=== PATIENT | female | born 1945 | race Caucasian/White ===

== ENCOUNTER 2022-12-09 21:40 | Emergency (ER) | payer BC ==
[~2022-12-09] VITALS: Ht 152.4 cm; Wt 68.0 kg
[2022-12-09 21:50] VITALS: BP_SYST 133
--- NOTE | 2022-12-09 21:58 | NUR ---
PT BIB FAMILY VIA W/C FR HOME C/O SHAKING, KEEP FALLING FOR 2 MOS NOW AND WEAKNESS. ALLERGIC TO CODEINE. PMH: HLD, DM, NEUROPATHY, GERD. HAD EPIDURAL SHOT IN NOVEMBER. 2 DAYS AGO, PT FELL HIT HEAD WENT TO [facility], HAD CT DONE (-). ALLERGIC TO CODEINE.
[2022-12-09 23:12] LABS: BASOPHILS # (AUTO) 0.1 K/uL (0.0-0.2); BASOPHILS % (AUTO) 0.6 % (0.0-2.0); EOSINOPHILS # (AUTO) 0.1 K/uL (0.0-0.4); EOSINOPHILS % (AUTO) 1.3 % (0.0-4.0); HEMATOCRIT 39.7 % (36-48); HEMOGLOBIN 13.3 g/dL (12.0-16.0); LYMPHOCYTES # (AUTO) 1.4 K/uL (1.0-5.5); LYMPHOCYTES % (AUTO) 14.8 % (20.5-51.5); MEAN CORPUSCULAR HEMOGLOBIN 31 pg (27-31); MEAN CORPUSCULAR HGB CONC 34 % (32-36); MEAN CORPUSCULAR VOLUME 94 fL (79.0-98.0); MONOCYTES # (AUTO) 0.7 K/uL (0.0-1.0); MONOCYTES % (AUTO) 7.7 % (1.7-9.3); NEUTROPHILS # (AUTO) 7.3 K/uL (1.8-7.7); NEUTROPHILS % (AUTO) 75.6 % (40.0-70.0); PLATELET COUNT (AUTO) 206 K/uL (130-430); RED BLOOD CELL COUNT(AUTO) 4.23 MIL/uL (4.2-6.2); RED CELL DISTRIBUTION WIDTH 15.1 % (9.0-15.0); WHITE BLOOD COUNT (AUTO) 9.7 K/uL (4.8-10.8)
--- NOTE | 2022-12-09 23:16 | NUR ---
COVID AND INFLUENZA SWABS COLLECTED AND SENT TO LAB.
[2022-12-09 23:21] LABS: ANION GAP 7 (5-15); CALCIUM 9.4 mg/dL (8.4-11.0); CHLORIDE 105 mmol/L (98-107); CREATININE 0.94 mg/dL (0.55-1.30); GLUCOSE 146 mg/dL (70-99); UREA NITROGEN, BLOOD 13 mg/dL (8-21)
[2022-12-09 23:28] LABS: ALANINE AMINOTRANSFERASE 29 U/L (12-78); ALBUMIN 3.7 g/dL (3.4-4.8); ASPARTATE AMINOTRANSFERASE 27 U/L (10-37); TOTAL BILIRUBIN 1.1 mg/dL (0.0-1.0)
--- NOTE | 2022-12-09 23:35 | NUR ---
Placed in room 02 . Placed on color television console monitor, blood pressure machine and pulse oximeter. To gown for exam. Side rails up. Report given to SANCHEZ FALL
--- NOTE | 2022-12-10 00:26 | NUR ---
FIRST CONTACT WITH PT. ASSESSMENT COMPLETED. AWAITING EVAL AND ORDERS.
--- NOTE | 2022-12-10 01:04 | NUR ---
PT HAS BEEN UNABLE TO PROVIDE URINE SAMPLE REQUESTED. ENCOURAGED TO DRINK PROVIDED WATER. BED JOSEPH PLACED
--- NOTE | 2022-12-10 01:51 | NUR ---
# 16 FR In and Out catheter with use of sterile technique. Immediate return of 50ml clear yellow urine noted. Urine sample collected and sent to lab. Pt tolerated procedure well Patient unable to toilet self.
[2022-12-10 02:22] LABS: BILIRUBIN,URINE NEGATIVE (NEGATIVE); BLOOD, URINE 1+ (NEGATIVE); COLOR,URINE YELLOW (YELLOW); GLUCOSE,URINE NEGATIVE (NEGATIVE); KETONES,URINE TRACE (NEGATIVE); LEUKOCYTE ESTERASE ,URINE NEGATIVE (NEGATIVE); NITRITE, URINE NEGATIVE (NEGATIVE); PROTEIN URINE NEGATIVE (NEGATIVE); UROBILINOGEN,URINE 0.2 (0.2-1.0)
[2022-12-10 02:44] LABS: CLARITY/URINE HAZY (CLEAR)
[2022-12-10 02:54] LABS: BACTERIA,URINE None Seen /HPF (None Seen); WBC,URINE 0-3 /HPF (0-3)
[2022-12-10] MEDS ORDERED: ASPI-1155 PO (03:28)
[2022-12-10] MEDS ORDERED: FAMO20TA8 PO (03:28)
[2022-12-10] MEDS ORDERED: LEVO112T5 PO (03:28)
[2022-12-10] MEDS ORDERED: BACL10TA PO (03:28)
[2022-12-10] MEDS ORDERED: TRAM50TA2 PO (03:28)
[2022-12-10] MEDS ORDERED: SIMV-341 PO (03:28)
[2022-12-10] MEDS ORDERED: GABA-529 PO (03:28)
[2022-12-10] MEDS ORDERED: OXYB5TAB16 PO (03:28)
[2022-12-10] MEDS ORDERED: METF-379 PO (03:28)
--- NOTE | 2022-12-10 03:28 | NUR ---
MED REC COMPLETED. INFORMATION PROVIDED BY DAUGHTER.
--- NOTE | 2022-12-10 06:15 | NUR ---
FAXED FACESHEET AND CLINICALS TO [facility] FOR PLACEMENT. FAX: [phone]
--- NOTE | 2022-12-10 07:15 | NUR ---
RECEIVED PT FROM YULISSA MARQUEZ RN. PT IS STABLE, NAD, VSS, NO C/O PAIN, AWAITING PLACEMENT TO SNF OR POSSIBLE ADMISSION TO FLOOR. ALL WORK-UP REMAINS NEGATIVE.
[2022-12-10 07:24] VITALS: BP_SYST 115
[2022-12-10] MEDS ORDERED: metFORMIN HCL 500 MG TABLET PO ONE (09:45)
[2022-12-10] MEDS ORDERED: OXYBUTYNIN CHLORIDE 5 MG XL TAB PO ONE (09:45)
[2022-12-10] MEDS ORDERED: GABAPENTIN 100 MG CAPSULE PO ONE (09:45)
[2022-12-10] MEDS ORDERED: traMADol HCL HCL 50 MG TABLET (ULTRAM) PO ONE (09:45)
[2022-12-10] MEDS ORDERED: BACLOFEN 10 MG TABLET PO ONE (09:45)
[2022-12-10] MEDS ORDERED: LEVOTHYROXINE SODIUM 0.112 MG TABLET PO ONE (09:45)
[2022-12-10] MEDS ORDERED: FAMOTIDINE 20 MG TABLET PO ONE (09:45)
[2022-12-10] MEDS ORDERED: ASPIRIN 81 MG TAB.CHEW PO ONE (09:45)
--- NOTE | 2022-12-10 09:59 | NUR ---
TRANSFER INFO JULIET PINTOJOHN RM: [id number] [phone] DR. WEINSTEIN AWAITING TRANSFER ETA, STATED SHE WILLCALL BACK SPOKE TO NORI HAGER HOISTER
[2022-12-10] MEDS ORDERED: oxyBUTYnin chloride 5 MG TABLET PO ONE (10:15)
--- NOTE | 2022-12-10 10:29 | NUR ---
[facility] ETA 1100
--- NOTE | 2022-12-10 11:04 | NUR ---
Report given to ALDO Siddiqi at [facility] for recovery. Patient given written and verbal discharge instructions and verbalizes understanding. ER MD discussed with patient the results and treatment provided. Patient in stable condition. ID arm band removed. IV catheter removed intact and dressing applied, no active bleeding. Opportunity for questions provided and answered.
== END 2022-12-10 11:04 ==
LOC: SED 21:40
DX: R53.1 Weakness (principal); E11.9 Type 2 diabetes mellitus without complications; I10 Essential (primary) hypertension; Z88.5 Allergy status to narcotic agent; Z79.899 Other long term (current) drug therapy; Z20.822 Contact with and (suspected) exposure to COVID-19
CPT/HCPCS: 36415; 71045; 80053; 81000; 83605; 83880; 84484; 85025; 87040; 87086; 93005; 99285

== ENCOUNTER 2023-08-11 20:17 | Emergency (ER) | payer BC ==
[~2023-08-11] VITALS: Ht 157.5 cm; Wt 73.0 kg
[~2023-08-11 20:17] MED LIST: ASPI-1155 PO; BACL10TA PO; FAMO20TA8 PO; GABA-529 PO; LEVO112T5 PO; METF-379 PO; OXYB5TAB16 PO; SIMV-341 PO; TRAM50TA2 PO
[2023-08-11 20:25] VITALS: BP_SYST 137; PULSE 79; RESP 16; TEMP 97.9; O2SAT 97
[2023-08-11] MEDS ORDERED: CELE100C PO (23:44)
[2023-08-11 23:59] VITALS: BP_SYST 139; PULSE 71; RESP 16; TEMP 97.9; O2SAT 100
== END 2023-08-11 23:59 | disposition home or self-care (01) ==
LOC: SED 20:17
DX: M71.21 Synovial cyst of popliteal space [Baker], right knee (principal); M17.11 Unilateral primary osteoarthritis, right knee; I10 Essential (primary) hypertension; E11.9 Type 2 diabetes mellitus without complications; Z79.899 Other long term (current) drug therapy; Z88.5 Allergy status to narcotic agent
CPT/HCPCS: 73560-TC; 93971; 99284